=== PATIENT | male | born 1970 | race Caucasian/White ===

== ENCOUNTER 2024-09-15 13:49 | Emergency (ER) | payer MEDICAID ==
[2024-09-15 14:26] VITALS: RESP 18; TEMP 97.1
--- NOTE | 2024-09-15 15:33 | ERPHSYRPT ---
- History of Present Illness Source: patient Exam Limitations: no limitations Patient Subjective Stated Complaint: pt states that he thinks that he has a kidney stone. pt states the pain started 3 hours ago Triage Nursing Assessment: pt ambulated into the er; pt is axo x4; c/o rt flank pain; pt states 8/10 pain to rt flank; hyperactive bowel sounds in a ll quads; pt denies N/V/D; skin PDW; no respiratory distress present; hypertensive Physician History: Patient has some pain in his right lumbar area. There is no radicular symptoms. It came on rather spontaneously. He does not have any tingling or weakness in his legs. Movement makes it worse. Rest ice and elevate makes it better.Pain is aching. He does not have a history of problems like this before he does not have any abdominal pain flank pain or dysuria.When I palpated there was some definite tenderness in the musculature and skeletal areas of the lumbar back Allergies/Adverse Reactions: No Known Drug Allergies Allergy (Unverified 09/15/24 14:10) Home Medications: No Reportable Medications [No Reported Medications] 09/15/24 [History] Hx Tetanus, Diphtheria Vaccination/Date Given: Yes Hx Influenza Vaccination/Date Given: No Hx Pneumococcal Vaccination/Date Given: No Travel Risk - International Travel Have you traveled outside of the country in past 3 weeks: No - Emerging Infectious Disease Are you exhibiting symptoms associated with any current EIDs: No - Review of Systems Constitutional: No Symptoms Musculoskeletal: Back Pain Neurological: No Symptoms Psychological: No Symptoms Endocrine: No Symptoms All Other Systems: Reviewed and Negative - Past Medical History Pertinent Past Medical History: No - Past Surgical History Past Surgical History: Yes Musculoskeletal: Orthopedic Surgery Other Surgical History: abd - Social History Smoking Status: Current every day smoker How long have you smoked: 30 years Exposure to second hand smoke: Yes Drug Use: marijuana - Social Determinants of Health Will the patient participate in the screening: Yes Do you worry about a steady place to live?: No Do you have any problems with any of the following?: No known problems In the past 12 months,have you had to go without utilities?: No Transportation Issues: No Has anyone in your support network made you feel unsafe?: No Have you or anyone in your house had to go w/o enough food: No - Nursing Vital Signs Nursing Vital Signs: Initial Vital Signs Temperature 97.1 F 04/03/25 14:15 Pulse Rate 70 09/15/24 14:15 Respiratory Rate 18 09/15/24 14:15 Blood Pressure 149/92 09/15/24 14:15 O2 Sat by Pulse Oximetry 99 09/15/24 14:15 Pain Scale Pain Intensity 5 - Physical Exam General Appearance: no apparent distress Respiratory Exam: normal breath sounds Cardiovascular Exam: regular rate/rhythm Back Exam: vertebral tenderness, muscle spasm, point tenderness (All the tenderness is in the right lumbar area) Extremity Exam: normal inspection Neurologic Exam: alert, oriented x 3, cooperative, normal mood/affect, sensation nml, other (Gait is mildly antalgic), No motor deficits, No sensory deficit Skin Exam: normal color SpO2: 99 - Course Nursing assessment & vital signs reviewed: Yes Ordered Tests: Active Orders 24 hr Category Date Time Status ABDOMEN AND PELVIS W/0 CONTRAS [CT] Stat Exams 09/15/24 19:31 Taken LUMBAR LIMITED (2 OR 3 VIEWS) Stat Exams 09/15/24 15:05 Completed CULTURE,URINE Stat Lab 09/15/24 17:42 Received UA W/RFX UR CULTURE Stat Lab 09/15/24 17:42 Completed Medication Summary Discontinued Medications Generic Name Dose Route Start Last Admin Trade Name Freq PRN Reason Stop Dose Admin Hydromorphone HCl 1 mg 09/15/24 19:41 09/15/24 19:46 Hydromorphone 1 Mg/1ml Inj IV 09/15/24 19:42 1 mg STAT ONE Administration Hydromorphone HCl Confirm 09/15/24 19:44 Hydromorphone 1 Mg/1ml Inj Administered 09/15/24 19:45 Dose 1 mg .ROUTE .STK-MED ONE Ondansetron HCl 4 mg 09/15/24 19:41 09/15/24 19:46 Ondansetron Hcl 4 Mg/2 Ml Vial IV 09/15/24 19:42 4 mg STAT ONE Administration Ondansetron HCl Confirm 09/15/24 19:44 Ondansetron Hcl 4 Mg/2 Ml Vial Administered 09/15/24 19:45 Dose 4 mg .ROUTE .STK-MED ONE Lab/Rad Data: Laboratory Results 09/15/24 Range/Units 17:42 Urine Color Yellow (Yellow) Urine Appearance Cloudy A (Clear) Urine pH 5.5 (4.6-8.0) Ur Specific [place] 1.020 (1.005-1.030) Urine Protein Trace A (Negative) Urine Glucose (UA) Negative (Negative) mg/dL Urine Ketones Trace A (Negative) Urine Blood Large A (Negative) Urine Nitrite Negative (Negative) Urine Bilirubin Negative (Negative) Urine Urobilinogen 1.0 A (0.2) mg/dL Ur Leukocyte Esterase Negative (Negative) U Hyaline Cast (Auto) None Seen (0-2) /LPF Urine Microscopic RBC 6-10 A (0-5) /HPF Urine Microscopic WBC 3-5 (0-5) /HPF Ur Epithelial Cells Rare (None Seen) /HPF Calcium Oxalate Crystal 3-5 A (None Seen) /HPF Urine Bacteria Few A (None Seen) /HPF Urine Culture Reflexed YES (NO) - Progress Progress Note: Patient was stable throughout stay. His UA came back with calcium oxalate crystals and red blood cells. I got a CT scan he had a 3 mm stone in his distal UVJ on the right. I think he is got a pass out shortly. I am going to discharge him to home in stable condition. To send him home with a couple [place]. 09/15/24 20:53 Medical Desision Making - Risk of complications Minimal Risk: Minimal risk of morbidity - Departure Departure Disposition: Home Clinical Impression: Kidney stone Condition: Stable Critical Care Time: No Referrals: GENEVA FERRIS MD [Primary Care Provider] - Follow up/PCP as directed Instructions: Kidney stones in adults
--- NOTE | 2024-09-15 16:30 | XRAY ---
Indication: Low back pain. Comparison: None 3 view lumbar spine demonstrates 5 lumbar segments in normal alignment with osteopenia, minimal multilevel thoracolumbar endplate spurring, minimal L5-S1 disc space narrowing, and mild bilateral L5-S1 degenerative facet hypertrophy. No acute bony, articular, or soft tissue abnormalities.
[2024-09-15 18:08] LABS: Appearance Cloudy (Clear); Bacteria Few /HPF (None Seen); Bilirubin Negative (Negative); Blood Large (Negative); Epithelial Cells Rare /HPF (None Seen); Glucose, Urine Negative (Negative); Hyaline Casts None Seen /LPF (0-2); Ketones Trace (Negative); Leukocyte Esterase Negative (Negative); Nitrite Negative (Negative); Ph 5.5 (4.6-8.0); Protein,Urine Dip Trace (Negative)
[2024-09-15] MEDS ORDERED: Zofran 4 MG/2 ML VIAL ONE (19:44)
[2024-09-15] MEDS ORDERED: Hydromorphone 1 mg/ml Injection ONE (19:44)
[2024-09-15] MEDS: Hydromorphone 1 mg/ml Injection IV ONE (19:46)
[2024-09-15] MEDS: Zofran 4 MG/2 ML VIAL IV ONE (19:46)
[2024-09-15] MEDS ORDERED: NORCO 5/325 MG ONE (20:55)
[2024-09-15] MEDS: NORCO 5/325 MG PO ONE (20:57)
[2024-09-15 21:03] VITALS: BP 122/77; PULSE 61; O2SAT 98
--- NOTE | 2024-09-16 08:36 | XRAY ---
Indication: Right flank pain. Hematuria. Multiple contiguous axial images obtained through the abdomen and pelvis without contrast using renal stone protocol. Comparison: None Lung bases demonstrate pulmonary emphysema and bilateral dependent atelectasis. No infiltrate or effusion. Heart not enlarged. Small hiatal hernia. Urinary bladder demonstrates 3 mm calculus adjacent to right UVJ. Minimal right hydronephrosis consistent with recent passage of calculus. Left mid kidney demonstrates additional 3 mm nonobstructing calculus. Noncontrasted stomach and bowel loops appear nonobstructed. Normal appendix. No free fluid/air. Remaining liver, gallbladder, pancreas, spleen, adrenal glands, kidneys, ureters, bladder, and aorta are unremarkable for noncontrast exam. Osseous structures intact. Tiny fatty left inguinal hernia. Impression: 1. 3 mm urinary bladder calculus adjacent to right UVJ with minimal right hydronephrosis. Additional nonobstructing left renal micro-calculus. 2. Incidental pulmonary emphysema, small hiatal hernia, and tiny fatty left inguinal hernia
== END 2024-09-15 21:09 | disposition home or self-care (01) ==
LOC: ED 13:49
DX: N20.0 Calculus of kidney (principal); M54.50 Low back pain, unspecified; Z72.0 Tobacco use
CPT/HCPCS: 72100; 74176; 81001; 87086; 96374; 96375; 99284; 99285; J1171; J2405; A9270-GY